=== PATIENT | male | born 1990 | race Caucasian/White ===

== ENCOUNTER 2023-05-11 20:38 | Emergency (ER) | payer MEDICARE, MEDICAID, SELFPAY ==
[2023-05-11 20:39] VITALS: BP 113/80; PULSE 93; RESP 16; TEMP 36.6; O2SAT 99; BMI 32.8
[2023-05-11 21:14] LABS: Absolute Lymphocyte Count 2.06 X10^3/uL (0.83-4.51); Absolute Neutrophil Count 2.1 X10^3/uL (2.0-7.7); Basophil# 0.04 X10^3/uL; Basophil% 0.8 % (0-1); Eosinophil# 0.14 X10^3/uL; Eosinophils% 2.7 % (0-5); Hematocrit 41.3 % (40-54); Hemoglobin 13.8 g/dL (13.0-16.5); Lymphocyte # 2.06 X10^3/ul (0.83-4.51); Lymphocyte % 40.1 % (19-41); Mean Corp Hgb Conc 33.4 g/dL (32-36); Mean Corpuscular Hgb 33.4 pg (27.0-32.0); Mean Platelet Vol. 10.7 fl (6.2-12.0); Monocyte# 0.74 X10^3/uL; Monocyte% 14.4 % (0-10); NRBC Flagged by Analyzer 0 % (0-5); Neutrophil # 2.14 X10^3/uL (2.7-7.7); Neutrophil % 41.6 % (47-70); Platelet Count 227 K/mm3 (150-450); RBC Distribution Width CV 12.3 % (11.6-14.6); RBC Distribution Width SD 45.6 fl (35.1-43.9); Red Blood Count 4.13 M/mm3 (4.6-6.2); White Blood Count 5.1 K/mm3 (4.4-11.0)
[2023-05-11 21:26] LABS: Anion Gap 4 (5-15); BUN 11 mg/dL (7-18); Calcium,Total 8.2 mg/dL (8.5-10.1); Chloride 112 mmol/L (98-107); Creatinine, Serum 0.85 mg/dL (0.70-1.30); EST Glomerular Filtration Rate 109 mL/min (>60); Est Glom Filt Rate - Afr Amer 132 mL/min (>60); Estimated Creatinine Clearance 137.08 ml/min; Glucose 103 mg/dL (74-106); Potassium 4.3 mmol/L (3.5-5.1); Sodium Level 141 mmol/L (136-145)
--- NOTE | 2023-05-11 21:30 | EX.ED.VIS.PS ---
HPI HPI - Psych History of Present Illness Chief Complaint: Suicidal Detail of Chief Complaint: History of schizoaffective disorder. Depression. Informant: patient Onset/Context/Timing Onset: Today Context: Gradual Onset Timing: Continuous Current Severity: Mild Maximum Severity: Moderate Worsened by: Situational factors Associated Symptoms Associated Symptoms - Psych: Positive for Depressed and Suicidal Thoughts; Negative for Visual Hallucinations or Auditory Hallucinations Specific plan (suicidal thought): Overdose Narrative Narrative: 33-year-old male history of schizoaffective disorder and depression. Prior mental health admissions but none in the last 2 years. Currently he is having life issues involving methamphetamine abuse, his girlfriend and her son recently moved out of his rental and he is concerned he is going to lose his rental home due to financial issues. He has a plan to overdose. No attempt at this time. He voiced suicidal thoughts and was brought in by police. Prior similar symptoms: Yes Recent Illness/Hospitalization: No PFSH PFSH Medical History Hypertension Home Medications citalopram 40 mg tablet 40 mg PO DAILY 07/26/16 [History Last Taken Unknown] risperidone 3 mg tablet (Risperdal) 3 mg PO QHS 07/26/16 [History Last Taken Unknown] trazodone 50 mg tablet 100 mg PO QHS 07/26/16 [History Last Taken Unknown] nicotine 21 mg/24 hr daily transdermal patch 1 patch transdermal Q24H 05/11/23 [History Last Taken 05/11/23] oxymetazoline 0.05 % nasal spray (Nasal Bathgate (oxymetazoline)) spray intranasal Q12H PRN nasal congestion 05/11/23 [History Last Taken Unknown] Allergy/AdvReac Type Severity Reaction Status Date / Time No Known Allergies Allergy Verified 05/11/23 20:41 Social History Smoking Status: Current every day smoker tobacco type: cigarettes ROS ROS ED ROS Narrative Denies recent illness. Review of Systems ROS Unobtainable: Denies due to encephalopathy Constitutional Constitutional ED: Denies chills or fever(s) Eyes Eyes: Denies blurry vision ENT ENT ED: Denies ear pain or rhinorrhea Cardiovascular Cardiovascular: Denies chest pain or palpitations Respiratory/Chest Respiratory/Chest: Denies cough or dyspnea Gastrointestinal Gastrointestinal: Denies abdominal pain, constipation, diarrhea, melena, nausea or vomiting Genitourinary Genitourinary ED: Denies dysuria or hematuria Musculoskeletal Musculoskeletal: Denies arthralgias or back pain Integumentary Denies abscess or Abrasions Neurologic Neurologic: Denies headache(s) Psychiatric Psychiatric: Denies anxiety or depression Endocrine Endocrinology: Denies polydipsia, polyphagia or polyuria Hematologic/Lymphatic Hematologic/Lymphatic: Denies easy bleeding, easy bruising or lymphadenopathy Allergic/Immunologic Allergic/Immunologic ED: Denies mouth swelling, tongue swelling or urticaria EXAM Physical Exam Narrative Exam Narrative: Well appearing. 33-year-old male. Vital signs stable afebrile. Lying in bed appears comfortable. No distress. Is awake alert. He is interactive. Makes good eye contact. He is currently calm and collected. He is not violent nor verbally abusive. Sitter in the room. HEENT exam unremarkable. No trauma. Neck nontender no signs of trauma. Lungs clear to auscultation bilaterally. Heart regular rhythm rate about 90 no murmur. Abdomen is soft nontender. Moving all 4 extremities. No track soto. No signs of trauma. Normal range of motion. Logically is awake alert. He is acting appropriate. He is answering questions following commands. No smell of alcohol. No signs of toxidrome clinically. Const Vital Signs: 05/11/23 20:39 Temperature 98 F Temperature Source Temporal Pulse Rate 93 Respiratory Rate 16 Blood Pressure 113/80 Blood Pressure Mean 91 Pulse Ox 99 Oxygen Delivery Method Room Air Positive well nourished and well developed; Negative for cachectic, contractures or unkempt General Appearance ED: well developed; Negative for unkempt, cachectic, contractures or pallor Nutritional Appearance: Negative for cachectic HEENT Reports moist mucous membranes normocephalic and atraumatic; Negative for trauma or tenderness Eyes PERRL and EOMs intact bilaterally General Eye ED: Negative for pale conjunctiva, scleral icterus or other Neck no lymphadenopathy, supple and no JVD General: Negative for tenderness Resp normal respiratory effort and clear to auscultation bilaterally Effort and Inspection: Negative for retractions Auscultation: Negative for rales, rhonchi, wheezes or diminished lung sounds Cardio S1 normal heart sound, S2 normal heart sound and no murmurs Palpation: Negative for other Rate: regular rate Rhythm: regular rhythm GI non-tender, non-distended and no masses Inspection: Negative for abdominal distention Auscultation: normoactive bowel sounds Palpation: soft; Negative for tender, guarding or hepatomegaly Back/Spine no CVA tenderness General Back: Negative for CVA tenderness Cervical Spine: Negative for cervical spine tenderness Thoracic Spine / Upper Back: Negative for thoracic spinal tenderness Coccyx: Negative for other Extremity normal to inspection General Extremety ED: Negative for edema or tenderness General Extremity: Negative for edema Neuro oriented x3, CN's II-XII intact bilaterally and no sensory deficits noted Sensorium / Orientation: alert, oriented to person, oriented to place and oriented to time; Negative for orientation impaired, confused, lethargic or stuporous Motor Exam: strength 5/5 throughout Psych mental status grossly normal, thought process normal, cooperative, affect normal, speech normal, activity/motor behavior normal, denies hallucinations and denies homicidal ideation; Negative for denies suicidal ideation Appearance: grossly normal, appropriate and well kempt; Negative for unkempt, disheveled, bizarre or intubated Attitude: calm, engaged, No paranoid, No withdrawn, No bizarre, No uncooperative, No evasive, No guarded, No belligerent and No agitated Activity / Motor Behavior: appropriate eye contact Speech: normal speech, No incoherent, No excessive, No minimal, No slow, No rapid, No soft and No loud Mood & Affect: euthymic mood Thought Process: normal thought process Thought Content: normal thought content Attention / Concentration: attention grossly intact Memory / Cognition: memory grossly intact Insight: insight good Judgement: judgement good Skin General Skin Exam: Negative for jaundice or pallor Lesions: no lesions Rashes: no rashes Trauma: Negative for abrasion, laceration or puncture Wounds: Negative for amputation MDM MDM MDM Narrative Medical decision making narrative: 33-year-old male schizoaffective disorder and depression. Depression due to recent situation of drug abuse, loss of her relationship with his girlfriend and possible loss of his current housing. Thoughts of suicide by overdose. Prior mental health hospitalizations but none recently. No current or recent attempt. Undergo ED mental health evaluation. Crisis evaluation prior to any disposition decision. Patient resting comfortably doing well at 10:06 PM. Awaiting crisis evaluation. He will be turned over to the overnight physician. I am comfortable if he gets admitted to mental health facility if crisis deems that they feel he is comfortable being discharged home and follow-up with that also. At this moment he states he feels that he would be safe at home. History & Record Review Discussion w/independent historian: Patient Additional record(s) reviewed:: Prior inpatient record, Prior outpatient record, Prior ED visit and Prior labs Lab Data Attestation: I reviewed the patient's lab results. Lab results narrative: BC unremarkable. White count of 5. H&H 13 and 41. Platelets 227. Chemistries gap of 4 normal BUN and creatinine. Glucose 103. COVID-negative. Alcohol negative. Pending talk screen. Labs: Laboratory Results - last 24 hr 05/11/23 05/11/23 21:00 21:15 WBC 5.1 RBC 4.13 L Hgb 13.8 Hct 41.3 MCV 100.0 H MCH 33.4 H MCHC 33.4 RDW Std Deviation 45.6 H RDW Coeff of Duc 12.3 Plt Count 227 MPV 10.7 Immature Gran % (Auto) 0.400 Neut % (Auto) 41.6 L Lymph % (Auto) 40.1 [place] % (Auto) 14.4 H Eos % (Auto) 2.7 Baso % (Auto) 0.8 Absolute Neuts (auto) 2.1 Absolute Lymphs (auto) 2.06 Nucleated RBC % 0 Sodium 141 Potassium 4.3 Chloride 112 H Carbon Dioxide 25.0 Anion Gap 4 L BUN 11 Creatinine 0.85 Estim Creat Clear Calc 137.08 Est GFR (MDRD) Af Amer 132 Est GFR (MDRD) Non-Af 109 BUN/Creatinine Ratio 13.0 Glucose 103 Calcium 8.2 L Ur Drug Screen Comment Ethyl Alcohol < 3.0 Discharge Plan Triage Chief Complaint: Suicidal ED Provider: Cristopher Alberts Dx/Rx/DC Orders Clinical Impression: Depression with suicidal ideation, Depression, Methamphetamine abuse Prescriptions: No Action citalopram 40 MG tablet 40 mg PO DAILY risperidone [Risperdal] 3 MG tablet 3 mg PO QHS trazodone 50 MG tablet 100 mg PO QHS nicotine 21 mg/24 hr patch 24 hour 1 patch transdermal Q24H Patient Comments: apply 1 patch to CLEAN, DRY, AND INTACT SKIN REMOVE AND REPLACE once daily for 6 WEEKS oxymetazoline [Nasal Bathgate (oxymetazoline)] 0.05 % spray,non-aerosol INTRANASAL Q12H PRN (Reason: nasal congestion) Patient Comments: place 2 sprays into each nostril twice a day for 2 days Primary Care Provider: Gilles Early Referrals: Care Physician,No Primary [Non-Staff] -
[2023-05-11 21:57] LABS: Alcohol, Blood (Medical)-Serum < 3.0 mg/dL
--- NOTE | 2023-05-11 22:01 | ED.RN ---
chart faxed to [facility], crisis aware pt needs evaluated.
[2023-05-11 22:07] LABS: Amphetamine Urine VISTA POSITIVE (<1000 ng/mL); Barbiturate Urine VISTA NEGATIVE (< 200 ng/mL); Benzodiazepine Urine VISTA NEGATIVE (< 200 ng/mL); Cocaine Urine VISTA NEGATIVE (< 300 ng/mL); Ecstacy Urine VISTA NEGATIVE (< 500 ng/mL); Methadone Urine VISTA NEGATIVE (< 300 ng/mL); PCP Urine VISTA NEGATIVE (< 25 ng/mL); THC Urine VISTA NEGATIVE (< 50 ng/mL); Vista UDS pH Range 5
[2023-05-11 23:42] VITALS: PULSE 88; RESP 18; O2SAT 96
[2023-05-12 01:03] VITALS: RESP 16
--- NOTE | 2023-05-12 01:31 | ED.RN ---
PT ACCEPTED [facility] [phone] [facility] ETA 9AM
[2023-05-12 03:39] VITALS: BP 103/51; PULSE 80; RESP 18; O2SAT 95
--- NOTE | 2023-05-12 03:40 | ED.RN ---
attempt to call report to neymar mayfield,informed to call closer to his arrival since pt is not leaving until 9am.
[2023-05-12 05:29] VITALS: RESP 18
== END 2023-05-12 07:00 ==
PROVIDERS: Emergency Provider Emergency Medicine; PCP Student in an Organized Health Care Education/Training Program; Visit Provider Emergency Medicine
DX: F32.A Depression, unspecified (principal); F25.9 Schizoaffective disorder, unspecified; F15.10 Other stimulant abuse, uncomplicated; R45.851 Suicidal ideations; I10 Essential (primary) hypertension; F17.210 Nicotine dependence, cigarettes, uncomplicated; Z79.899 Other long term (current) drug therapy
CPT/HCPCS: 80048; 80307; 82077; 85025; 87811; 99284; A4216